=== PATIENT | male | born 1955 | race Caucasian/White ===

== ENCOUNTER 2017-01-20 22:23 | Emergency (ER) | payer BC ==
--- NOTE | 2017-01-20 22:31 | ED Physician Documentation ---
PD HPI UPPER EXT INJURY - Stated complaint Stated Complaint: RT WRIST - History obtained from History obtained from: Patient - History of Present Illness Location: Right, Wrist Type of injury: Other (onset of wrist pain without injury and then developed muscle spasms and then pain through whole arm and shoulder. Has had similar episodes in the past, with the wrist arthritis that lasts days, but the progressive arm pain/spasms is the "rare disease" response. He denies RSD as diagnosis.). No: Fall, Twist Timing - onset: Today (few hours ago) Timing - duration: Hours Timing - details: Abrupt onset, Still present Worsened by: Moving, Palpating (of the wrist) Associated symptoms: No: Weakness, Numbness, Tingling, Discolored Similar symptoms before: Diagnosis (not clear diagnosis. 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 osteoarthritis flare (less common to be as abrupt onset). Has seen specialists and given dx of unclear neuromuscular Dx.) Recently seen: Not recently seen Review of Systems Constitutional: denies: Fever, Chills Cardiac: denies: Chest pain / pressure, Palpitations Skin: denies: Rash, Lesions Musculoskeletal: denies: Neck pain, Back pain Neurologic: denies: Focal weakness, Numbness PD PAST MEDICAL HISTORY - Past Medical History Cardiovascular: None Respiratory: None Neuro: None Musculoskeletal: Other (recurrent wrist arthritis. Body response to pain of marked pain and muscular spasms. ) - Present Medications Home Medications: Ambulatory Orders Medication Instructions Recorded Confirmed Dexamethasone [Decadron] 4 mg PO DAILY #5 tablet 01/20/17 - Allergies Allergies/Adverse Reactions: Allergies Allergy/AdvReac Type Severity Reaction Status Date / Time methylphenidate HCl * Allergy Unknown Verified 01/20/17 22:37 [From Ritalin] flu Allergy Unknown Uncoded 01/20/17 22:37 pneumonia vax Allergy Unknown Uncoded 01/20/17 22:37 PD ED PE NORMAL - Vitals Vital signs reviewed: Yes - General General: Alert and oriented X 3, Well developed/nourished, Other (appears in pain and has general diaphoresis from it. ) - Neck Neck: Supple, no meningeal sign, No adenopathy - Cardiac Cardiac: RRR, No murmur - Respiratory Respiratory: Clear bilaterally - Derm Derm: Normal color, Warm and dry, No rash - Extremities Extremities: Other (right wrist tender dorsally without effusion, redness, swelling. Pain with ROM. Normal color, pulses, cap refill of fingers. ) - Neuro Neuro: Alert and oriented X 3, No motor deficit, No sensory deficit, Normal speech Results - Vitals Vitals: Vital Signs - 24 hr 01/20/17 22:29 Temperature 36.8 C Heart Rate 74 Respiratory 18 Rate Blood Pressure 120/85 H O2 Saturation 97 Oxygen O2 Source Room air PD MEDICAL DECISION MAKING - ED course Complexity details: re-evaluated patient (feeling much improved and spasms abated, pain decreased. He feels able to go home and sleep. Has pain meds and Flexeril at home. ), considered differential (he reports prior similar episodes treated with pain meds and muscle relaxants. Has had joint injections from ortho that helps. He says rare neuromuscular condition and has seen specialists , so I don't think I will bother with tests/etc. He has good pulses and color/ cap refill, normal sensation and motor (though wrist hurts with movement). Is not red nor swollen, so does not appear infection nor likely gout, though still consider gout as the initial arthritis pain of wrist. Now with the whoel arm pain and spasms. ), d/w patient Departure - Departure Disposition: 01 Home, Self Care Clinical Impression: Muscle spasm Wrist pain, acute Qualifiers: Laterality: right Qualified Code(s): M25.531 - Pain in right wrist Condition: Stable Record reviewed to determine appropriate education?: Yes Instructions: ED Joint Pain Prescriptions: Dexamethasone [Decadron] 4 mg PO DAILY #5 tablet Comments: Use your medications at home for pain and spasms as needed. Light use of right arm for couple days. Continue oral steroid daily for few more days until fully improved.
[2017-01-20] MEDS ORDERED: KETOROLAC 60 MG/2 ML VIAL IVP STA (22:54)
[2017-01-20] MEDS ORDERED: DEXAMETHASONE 10 MG/ML VIAL IVP STA (22:54)
[2017-01-20] MEDS ORDERED: diazePAM INJ 5 MG/ML SYRINGE IVP STA (22:54)
[2017-01-20] MEDS ORDERED: HYDROmorphone 1 MG/ML SYRINGE IVP STA (22:54)
[2017-01-20] MEDS ORDERED: KETOROLAC 30 MG/ML VIAL ONE (22:56)
[2017-01-20] MEDS ORDERED: DEXAMETHASONE 10 MG/ML VIAL ONE (22:57)
[2017-01-20] MEDS ORDERED: diazePAM INJ 5 MG/ML SYRINGE ONE (22:57)
[2017-01-20] MEDS ORDERED: HYDROmorphone 1 MG/ML SYRINGE ONE (22:57)
[2017-01-21 00:08] VITALS: BP 131/69
== END 2017-01-21 00:09 | disposition home or self-care (01) ==
LOC: ED 22:23
DX: M62.838 Other muscle spasm (principal); M25.531 Pain in right wrist; M19.039 Primary osteoarthritis, unspecified wrist
CPT/HCPCS: 96374; 96375; 99283; 99284; J1170